=== PATIENT | male | born 1990 | race Caucasian/White ===

== ENCOUNTER 2017-12-20 20:58 | Emergency (ER) | payer OTHER ==
[~2017-12-20 20:58] MED LIST: DOXY100T PO; TRAM50 PO
[2017-12-20 21:46] VITALS: BP 157/82; PULSE 65; RESP 16; TEMP 98.2; O2SAT 97
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
== END 2017-12-20 23:07 | disposition home or self-care (01) ==
LOC: NEPK 20:58
DX: S01.81XD Laceration without foreign body of other part of head, subsequent encounter (principal); Y04.2XXA Assault by strike against or bumped into by another person, initial encounter; Y93.9 Activity, unspecified; Y99.0 Civilian activity done for income or pay
CPT/HCPCS: 12011